=== PATIENT | female | born 1990 | race Caucasian/White ===

== ENCOUNTER 2017-10-24 17:01 | Emergency (ER) | payer OTHER, MEDICAID ==
[2017-10-24] MEDS: KETOROLAC 30 MG INJ IM (17:52)
[2017-10-24] MEDS: ALPRAZOLAM 0.25 MG TAB PO (17:52)
== END 2017-10-24 18:20 | disposition home or self-care (01) ==
LOC: E/R 18:20
DX: S13.9XXA Sprain of joints and ligaments of unspecified parts of neck, initial encounter (principal); S60.221A Contusion of right hand, initial encounter; S20.212A Contusion of left front wall of thorax, initial encounter; V49.40XA Driver injured in collision with unspecified motor vehicles in traffic accident, initial encounter
CPT/HCPCS: 71045; 72125; 73130-RT; 96372; 99285-25